=== PATIENT | female | born 1940 | race Caucasian/White ===

== ENCOUNTER 2016-08-16 11:25 | Day surgery (SDC) | payer MEDICARE, BC ==
--- NOTE | ~2016-08-16 | EGD ---
EGD REPORT [facility] [address] [address] NAME: HALEIGH VIRK : 40 STATUS : REG [facility]#: [id number] AGE: 75 ADM/REG DATE : 08/16/16 MR#: [id number] REPORT SERV DATE: 08/16/16 DICTATED BY: LAW SPIVEY DATE: 08/16/16 REPORT STATUS : Draft TRANSCRIBED BY: [facility] DATE: 08/16/16 Endoscopy Center Patient Name: Haleigh Virk Date of : 1940 Attending MD: LAW SPIVEY MD Procedure Date No Time: 08/16/2016 Procedure: Upper GI endoscopy Indications: Heartburn Referring MD: WILBERTO HERMAN Medicines: Propofol per Anesthesia Complications: No immediate complications. Procedure: Pre-Anesthesia Assessment: - ASA Grade Assessment: III - A patient with severe systemic disease. After obtaining informed consent, the endoscope was passed under direct vision. Throughout the procedure, the patient's blood pressure, pulse, and oxygen saturations were monitored continuously. The GIF H190 [id number] was introduced through the mouth, and advanced to the second part of duodenum. The upper GI endoscopy was accomplished without difficulty. The patient tolerated the procedure well. Findings: The examined esophagus was normal. A small hiatus hernia was present. 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 Coagulation for hemostasis using argon beam at 0.3 liters/minute and 15 ding was successful. The examined duodenum was normal. Impression: - Normal esophagus. - Hiatus hernia. 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 Treated with thermal therapy. - Normal examined duodenum. Recommendation: - Continue Prevacid and Reglan. - Continue gastroparetic dietary measures. Procedure Code(s): --- Professional --- 41084, Esophagogastroduodenoscopy, flexible, transoral; with control of bleeding, any method Diagnosis Code(s): --- Professional --- EGD REPORT [facility] [address] [facility] [place]. [address] NAME: HALEIGH VIRK : 40 STATUS : REG [facility]#: [id number] AGE: 75 ADM/REG DATE : 08/16/16 MR#: [id number] REPORT SERV DATE: 08/16/16 DICTATED BY: LAW SPIVEY. DATE: 08/16/16 REPORT STATUS : Draft [facility] BY: [facility] DATE: 08/16/16 K44.9, Diaphragmatic hernia without obstruction or gangrene K31.811, Angiodysplasia of stomach and duodenum with bleeding R12, Heartburn CPT copyright 2013 [employer]. All rights reserved. The codes documented in this report are preliminary and upon hydro pneumatic tester review may be revised to meet current compliance requirements. LAW SPIVEY MD 08/16/2016 1:41 PM This report has been signed electronically. Number of Addenda: 0 Note Initiated On: 08/16/2016 1:05 PM Scope Withdrawal Time 0 hours 0 minutes 0 seconds [address] [facility] [place] [address]
--- NOTE | ~2016-08-16 | EGD ---
EGD REPORT [facility] [address] [address] NAME: HALEIGH VIRK : 40 STATUS : REG [facility] PAT#: [id number] AGE: 75 ADM/REG DATE : 08/16/16 MR#: [id number] REPORT SERV DATE: 08/16/16 DICTATED BY: LAW SPIVEY. DATE: 08/16/16 REPORT STATUS : Draft TRANSCRIBED BY: [facility] DATE: 08/16/16 Endoscopy Center Patient Name: Haleigh Virk Date of : 1940 Attending MD: LAW SPIVEY MD Procedure Date No Time: 08/16/2016 Procedure: Colonoscopy Indications: High risk colon CA surveillance: Personal history adenoma with villous component Referring MD: WILBERTO HERMAN Medicines: Propofol per Anesthesia Complications: No immediate complications. Procedure: Pre-Anesthesia Assessment: - ASA Grade Assessment: III - A patient with severe systemic disease. - After reviewing the risks and benefits, the patient was deemed in satisfactory condition to undergo the procedure. After I obtained informed consent, the scope was passed under direct vision. Throughout the procedure, the patient's blood pressure, pulse, and oxygen saturations were monitored continuously. The PCF [id number] was introduced through the anus and advanced to the cecum, identified by appendiceal orifice and ileocecal valve. The colonoscopy was performed without difficulty. The patient tolerated the procedure well. The quality of the bowel preparation was good. Findings: The perianal and digital rectal examinations were normal. Two sessile polyps were found in the transverse colon. The polyps were 5 to 7 mm in size. These polyps were removed with a cold snare. Resection and retrieval were complete. Internal hemorrhoids were found during retroflexion and were Grade I (internal hemorrhoids that do not prolapse). Impression: - Two 5 to 7 mm polyps in the transverse colon. Resected and retrieved. - Internal hemorrhoids. Recommendation: - Await pathology results. - Patient has a contact number available for emergencies. The signs and symptoms of potential delayed complications were discussed with the patient. Return to normal activities tomorrow. Written discharge EGD REPORT [address] [address] NAME: HALEIGH VIRK : 40 STATUS : REG [facility] PAT#: [id number] AGE: 75 ADM/REG DATE : 08/16/16 MR#: [id number] REPORT SERV DATE: 08/16/16 DICTATED BY: LAW SPIVEY. DATE: 08/16/16 REPORT STATUS : Draft TRANSCRIBED BY: [employer] DATE: 08/16/16 instructions were provided to the patient. - Regular diet. - Continue present medications. - Repeat colonoscopy for surveillance based on pathology results. Procedure Code(s): --- Professional --- 00108, Colonoscopy, flexible, proximal to splenic flexure; with removal of tumor(s), polyp(s), or other lesion(s) by snare technique Diagnosis Code(s): --- Professional --- D12.3, Benign neoplasm of transverse colon K64.0, First degree hemorrhoids Z86.010, Personal history of colonic polyps CPT copyright 2013 [employer]. All rights reserved. The codes documented in this report are preliminary and upon toolmaker grade three review may be revised to meet current compliance requirements. LAW SPIVEY MD 08/16/2016 1:42 PM This report has been signed electronically. Number of Addenda: 0 Note Initiated On: 08/16/2016 1:06 PM Scope Withdrawal Time 0 hours 9 minutes 12 seconds [address] [address]
[~2016-08-16 11:25] MED LIST: ADVIL PM1 CAP PO; ADVIL PO; ALEVE220 MG PO; ASAB PO; ATV.5 PO; CALTRA600D PO; COLON PROBIOTIC; COREG12 PO; DIOVAN HCT320 MG/25 PO; EDARBYCLOR 40-1 EACH PO; GLUCOPHAGE1000 MG PO; INVOKANA300 MG PO; KLOR-CON 1010 MEQ PO; L20 PO; MAGNEBIND PO; MAGOX4 PO; POTASSIUM95 MG PO; PRAVACHOL40 MG PO; PRILO PO; RECLAST IV; REG PO; SYN112 PO; TRICOR145 PO; TRULICITY0.75 MG/0. SQ; VYTORIN 10/20 T1 TAB PO
== END 2016-08-16 23:59 | disposition home or self-care (01) ==
LOC: DMU 11:25
PROVIDERS: Internal Medicine Gastroenterology
PROC: 0W3P8ZZ Control Bleeding in Gastrointestinal Tract, Via Natural or Artificial Opening Endoscopic (ICD-10-PCS; principal; 2016-08-16 13:00)
PROC: 0DBL8ZX Excision of Transverse Colon, Via Natural or Artificial Opening Endoscopic, Diagnostic (ICD-10-PCS; 2016-08-16 13:00)
DX: D12.3 Benign neoplasm of transverse colon (principal); K64.0 First degree hemorrhoids; K44.9 Diaphragmatic hernia without obstruction or gangrene; K31.811 Angiodysplasia of stomach and duodenum with bleeding; I10 Essential (primary) hypertension; E11.9 Type 2 diabetes mellitus without complications; J45.909 Unspecified asthma, uncomplicated; E78.00 Pure hypercholesterolemia, unspecified; Z86.010 Personal history of colon polyps; Z91.030 Bee allergy status; Z79.899 Other long term (current) drug therapy
CPT/HCPCS: 82962; 88305